=== PATIENT | female | born 1960 | race Caucasian/White ===

== ENCOUNTER 2021-02-24 14:45 | Inpatient (IN) ==
[2021-02-24] MEDS ORDERED: *HR* Enoxaparin 40 MG/0.4 ML SYRINGE SQ ONE (16:59)
[2021-02-24] MEDS ORDERED: Naloxone 0.4 MG/ML INJ IVP PRN (16:59)
[2021-02-24] MEDS ORDERED: Dextrose Gel 15 GM/37.5 ML TUBE PO PRN ×2 (17:56)
[2021-02-24] MEDS ORDERED: *HR* Dextrose 50 % in Water (Vial) 50 ML VIAL IVP PRN (17:56)
[2021-02-24] MEDS ORDERED: D5% in Water 1,000 ML IVC PRN (17:56)
[2021-02-24] MEDS ORDERED: Remdesivir 200 MG in 0.9 % Sodium Chloride 100 ML IVPB ONE (18:00)
[2021-02-24] MEDS: Ondansetron 4 MG/2 ML VIAL IVP PRN (22:29)
[2021-02-24] MEDS: Insulin LISPRO 300 UNITS/3 ML VIAL SUBQ SCH (22:30)
[2021-02-25 07:17] LABS: INR 1.3; Prothrombin Time 14.8 Seconds (9.4-12.1)
[2021-02-25 07:19] LABS: Alanine Aminotransferase 54 Units/L (7-52); Albumin 3.3 g/dL (3.5-5.7); Albumin/Globulin Ratio 0.8 (1.1-2.2); Alkaline Phosphatase 110 Units/L (34-104); Aspartate Amino Transferase 70 Units/L (13-39); BUN/Creatinine Ratio 41 (6-26); Bilirubin,Direct 0.1 mg/dL (0.0-0.2); Bilirubin,Indirect 0.3 mg/dL (0.0-1.0); Bilirubin,Total 0.4 mg/dL (0.3-1.0); Blood Urea Nitrogen 26 mg/dL (8-23); Carbon Dioxide 24 mEq/L (23-29); Chloride 105 mEq/L (98-107); Globulin 4.3 g/dL (2.4-3.5); Glucose 256 mg/dL (70-105); Magnesium 2.3 mg/dL (1.6-2.6); Osmolality,Calculated 296 (280-300); Potassium 4.5 mEq/L (3.5-5.1); Sodium 136 mEq/L (136-145); Total Protein 7.6 g/dL (6.4-8.9); eGFR For African Americans > 60 (> 60); eGFR For Non-African Americans > 60 (> 60)
[2021-02-25] MEDS: dexAMETHasone 4 MG TABLET PO SCH (08:20)
[2021-02-25] MEDS: Pantoprazole 40 MG VIAL IVP SCH (08:20)
[2021-02-25] MEDS: *HR* Enoxaparin 40 MG/0.4 ML SYRINGE SQ SCH (08:21)
[2021-02-25] MEDS: Insulin LISPRO 300 UNITS/3 ML VIAL SUBQ SCH ×3 (08:21→16:31)
[2021-02-25 09:43] LABS: C-Reactive Protein 70 mg/L (Less than 10)
[2021-02-25 10:47] LABS: Estimated Average Glucose 237 mg/dl; Hemoglobin A1C 9.9 %
[2021-02-25 12:49] LABS: Basophils % 0.3 %
[2021-02-25 12:51] LABS: Basophils # 0.1 K/mcL (0.0-0.2); Hematocrit 38.9 % (35.3-44.9); Hemoglobin 12.8 g/dL (11.5-15.4); Immature Granulocytes % 1.6 % (0-4); Immature Platelets 10.6 % (1.1-6.1); Lymphocytes # 1.3 K/mcL (0.6-4.6); Lymphocytes % 8.1 %; Mean Corpuscular HGB Conc 32.9 g/dL (31.6-35.5); Mean Corpuscular Hemoglobin 33.6 pg (28.0-33.3); Mean Corpuscular Volume 102.1 fL (83.0-100.0); Mean Platelet Volume 13.5 fL (9.4-12.4); Monocytes # 0.5 K/mcL (0.0-1.3); Monocytes % 3.3 %; Neutrophils # 13.7 K/mcL (1.6-8.9); Platelet Count 267 K/mcL (140-400); Red Blood Count 3.81 M/mcL (3.82-4.97); Segmented Neutrophils % 86.7 %; White Blood Count 15.8 K/mcL (4.3-11.1)
[2021-02-25] MEDS: Furosemide 20 MG TABLET PO SCH (13:57)
[2021-02-25] MEDS: Verapamil ER (24 HR) 240 MG TABLET.ER PO SCH (13:57)
[2021-02-25] MEDS: allopurinoL 100 MG TABLET PO SCH (13:58)
[2021-02-25] MEDS: Remdesivir 100 MG in 0.9 % Sodium Chloride 100 ML IVPB SCH (16:31)
[2021-02-25] MEDS: Acetaminophen 325 MG TABLET PO PRN (20:57)
[2021-02-25] MEDS ORDERED: Insulin DETEMIR 100 UNIT/ML X5UNITS SUBQ SCH (21:00)
[2021-02-26] MEDS: Ondansetron 4 MG/2 ML VIAL IVP PRN ×2 (04:48→20:44)
[2021-02-26 05:15] LABS: Basophils # 0.1 K/mcL (0.0-0.2); Basophils % 0.5 %; Hematocrit 40.3 % (35.3-44.9); Hemoglobin 13.4 g/dL (11.5-15.4); Immature Granulocytes % 3.8 % (0-4); Lymphocytes # 1.4 K/mcL (0.6-4.6); Lymphocytes % 12.3 %; Mean Corpuscular HGB Conc 33.3 g/dL (31.6-35.5); Mean Corpuscular Hemoglobin 33.3 pg (28.0-33.3); Mean Platelet Volume 12.7 fL (9.4-12.4); Monocytes # 0.5 K/mcL (0.0-1.3); Monocytes % 3.8 %; Neutrophils # 9.3 K/mcL (1.6-8.9); Nucleated Red Blood Cells 0.3 /100 WBC (0); Platelet Count 301 K/mcL (140-400); Red Blood Count 4.03 M/mcL (3.82-4.97); Red Cell Distribution Width 13.6 % (11.5-14.5); Segmented Neutrophils % 79.6 %; White Blood Count 11.7 K/mcL (4.3-11.1)
[2021-02-26 05:31] LABS: Albumin 3.4 g/dL (3.5-5.7); Albumin/Globulin Ratio 0.7 (1.1-2.2); Bilirubin,Direct 0.1 mg/dL (0.0-0.2); Bilirubin,Indirect 0.5 mg/dL (0.0-1.0); Bilirubin,Total 0.6 mg/dL (0.3-1.0); Globulin 4.7 g/dL (2.4-3.5); Total Protein 8.1 g/dL (6.4-8.9)
[2021-02-26 05:32] LABS: Alanine Aminotransferase 74 Units/L (7-52); Albumin 3.4 g/dL (3.5-5.7); Albumin/Globulin Ratio 0.7 (1.1-2.2); Alkaline Phosphatase 125 Units/L (34-104); Aspartate Amino Transferase 83 Units/L (13-39); BUN/Creatinine Ratio 38 (6-26); Bilirubin,Total 0.6 mg/dL (0.3-1.0); Blood Urea Nitrogen 25 mg/dL (8-23); Calcium 9.2 mg/dL (8.6-10.3); Carbon Dioxide 24 mEq/L (23-29); Chloride 103 mEq/L (98-107); Globulin 4.7 g/dL (2.4-3.5); Glucose 275 mg/dL (70-105); Magnesium 2.1 mg/dL (1.6-2.6); Osmolality,Calculated 296 (280-300); Potassium 4.6 mEq/L (3.5-5.1); Sodium 136 mEq/L (136-145); Total Protein 8.1 g/dL (6.4-8.9); eGFR For African Americans > 60 (> 60); eGFR For Non-African Americans > 60 (> 60)
[2021-02-26] MEDS: Insulin LISPRO 300 UNITS/3 ML VIAL SUBQ SCH ×3 (08:59→17:02)
[2021-02-26] MEDS: Verapamil ER (24 HR) 240 MG TABLET.ER PO SCH (09:00)
[2021-02-26] MEDS: Furosemide 20 MG TABLET PO SCH (09:01)
[2021-02-26] MEDS: dexAMETHasone 4 MG TABLET PO SCH (09:01)
[2021-02-26] MEDS: Aspirin Enteric Coated 81 MG Tablet PO SCH (09:01)
[2021-02-26] MEDS: lisinopriL 20 MG TABLET PO SCH (09:02)
[2021-02-26] MEDS: Pantoprazole 40 MG VIAL IVP SCH (09:02)
[2021-02-26] MEDS: allopurinoL 100 MG TABLET PO SCH (09:02)
[2021-02-26] MEDS: *HR* Enoxaparin 40 MG/0.4 ML SYRINGE SQ SCH (09:15)
[2021-02-26] MEDS: Remdesivir 100 MG in 0.9 % Sodium Chloride 100 ML IVPB SCH (16:55)
[2021-02-26] MEDS ORDERED: Insulin DETEMIR 100 UNIT/ML X5UNITS SUBQ SCH (21:00)
[2021-02-27 03:27] LABS: Basophils % 0.3 %; Hematocrit 38.1 % (35.3-44.9); Hemoglobin 12.9 g/dL (11.5-15.4); Immature Granulocytes % 3.7 % (0-4); Lymphocytes # 1.2 K/mcL (0.6-4.6); Lymphocytes % 10.4 %; Mean Corpuscular HGB Conc 33.9 g/dL (31.6-35.5); Mean Corpuscular Hemoglobin 33.5 pg (28.0-33.3); Mean Platelet Volume 12.1 fL (9.4-12.4); Monocytes % 2.9 %; Nucleated Red Blood Cells 0.6 /100 WBC (0); Platelet Count 266 K/mcL (140-400); Red Blood Count 3.85 M/mcL (3.82-4.97); Red Cell Distribution Width 13.5 % (11.5-14.5); Segmented Neutrophils % 82.7 %; White Blood Count 11.9 K/mcL (4.3-11.1)
[2021-02-27 03:36] LABS: Monocytes # 0.4 K/mcL (0.0-1.3); Neutrophils # 9.8 K/mcL (1.6-8.9)
[2021-02-27 03:46] LABS: Albumin 3.1 g/dL (3.5-5.7); Albumin/Globulin Ratio 0.6 (1.1-2.2); Bilirubin,Direct 0.2 mg/dL (0.0-0.2); Bilirubin,Indirect 0.4 mg/dL (0.0-1.0); Bilirubin,Total 0.6 mg/dL (0.3-1.0); Globulin 4.8 g/dL (2.4-3.5); Total Protein 7.9 g/dL (6.4-8.9)
[2021-02-27 03:48] LABS: Alanine Aminotransferase 75 Units/L (7-52); Albumin 3.1 g/dL (3.5-5.7); Albumin/Globulin Ratio 0.6 (1.1-2.2); Alkaline Phosphatase 135 Units/L (34-104); Aspartate Amino Transferase 67 Units/L (13-39); BUN/Creatinine Ratio 40 (6-26); Bilirubin,Total 0.6 mg/dL (0.3-1.0); Blood Urea Nitrogen 24 mg/dL (8-23); Calcium 9.2 mg/dL (8.6-10.3); Carbon Dioxide 24 mEq/L (23-29); Chloride 103 mEq/L (98-107); Globulin 4.8 g/dL (2.4-3.5); Glucose 245 mg/dL (70-105); Magnesium 1.9 mg/dL (1.6-2.6); Osmolality,Calculated 292 (280-300); Potassium 4.6 mEq/L (3.5-5.1); Sodium 135 mEq/L (136-145); Total Protein 7.9 g/dL (6.4-8.9); eGFR For African Americans > 60 (> 60); eGFR For Non-African Americans > 60 (> 60)
[2021-02-27] MEDS ORDERED: Isovue-370 500 ML BOTTLE IVP ONE (07:37)
[2021-02-27] MEDS: Pantoprazole 40 MG VIAL IVP SCH (08:26)
[2021-02-27] MEDS: *HR* Enoxaparin 40 MG/0.4 ML SYRINGE SQ SCH (08:27)
[2021-02-27] MEDS: Dexamethasone Sodium Phos/PF 10 MG/ML VIAL IVP SCH (08:27)
[2021-02-27] MEDS: lisinopriL 20 MG TABLET PO SCH (08:28)
[2021-02-27] MEDS: Verapamil ER (24 HR) 240 MG TABLET.ER PO SCH (08:28)
[2021-02-27] MEDS: Aspirin Enteric Coated 81 MG Tablet PO SCH (08:28)
[2021-02-27] MEDS: allopurinoL 100 MG TABLET PO SCH (08:28)
[2021-02-27] MEDS: Insulin LISPRO 300 UNITS/3 ML VIAL SUBQ SCH ×3 (08:29→16:47)
[2021-02-27] MEDS ORDERED: Furosemide 20 MG TABLET PO SCH (09:00)
[2021-02-27] MEDS ORDERED: Enoxaparin Weight Dosing SQ SCH (10:00)
[2021-02-27] MEDS ORDERED: *HR* Enoxaparin 120 MG/0.8 ML SYRINGE SQ SCH (10:15)
[2021-02-27] MEDS ORDERED: *HR* Enoxaparin 80 MG/0.8 ML SYRINGE SQ ONE (10:15)
[2021-02-27] MEDS: Remdesivir 100 MG in 0.9 % Sodium Chloride 100 ML IVPB SCH (16:48)
[2021-02-27] MEDS: *HR* Enoxaparin 120 MG/0.8 ML SYRINGE SQ SCH (19:39)
[2021-02-27] MEDS: Insulin DETEMIR 100 UNIT/ML X5UNITS SUBQ SCH (20:18)
[2021-02-28] MEDS: Melatonin 3 MG TABLET PO PRN (02:53)
[2021-02-28 03:22] LABS: Hematocrit 37.4 % (35.3-44.9); Hemoglobin 12.7 g/dL (11.5-15.4); Mean Corpuscular Hemoglobin 33.1 pg (28.0-33.3); Mean Corpuscular Volume 97.4 fL (83.0-100.0); Mean Platelet Volume 12.6 fL (9.4-12.4); Platelet Count 248 K/mcL (140-400); Red Blood Count 3.84 M/mcL (3.82-4.97); Red Cell Distribution Width 13.2 % (11.5-14.5); White Blood Count 12.8 K/mcL (4.3-11.1)
[2021-02-28 03:45] LABS: Alanine Aminotransferase 66 Units/L (7-52); Albumin/Globulin Ratio 0.6 (1.1-2.2); Alkaline Phosphatase 139 Units/L (34-104); Aspartate Amino Transferase 48 Units/L (13-39); BUN/Creatinine Ratio 41 (6-26); Bilirubin,Direct 0.2 mg/dL (0.0-0.2); Bilirubin,Indirect 0.5 mg/dL (0.0-1.0); Bilirubin,Total 0.7 mg/dL (0.3-1.0); Blood Urea Nitrogen 25 mg/dL (8-23); Calcium 9.2 mg/dL (8.6-10.3); Carbon Dioxide 22 mEq/L (23-29); Chloride 103 mEq/L (98-107); Globulin 4.7 g/dL (2.4-3.5); Glucose 275 mg/dL (70-105); Magnesium 1.9 mg/dL (1.6-2.6); Osmolality,Calculated 292 (280-300); Potassium 4.3 mEq/L (3.5-5.1); Sodium 134 mEq/L (136-145); Total Protein 7.7 g/dL (6.4-8.9); eGFR For African Americans > 60 (> 60); eGFR For Non-African Americans > 60 (> 60)
[2021-02-28] MEDS: lisinopriL 20 MG TABLET PO SCH (07:59)
[2021-02-28] MEDS: Aspirin Enteric Coated 81 MG Tablet PO SCH (07:59)
[2021-02-28] MEDS: Verapamil ER (24 HR) 240 MG TABLET.ER PO SCH (07:59)
[2021-02-28] MEDS: allopurinoL 100 MG TABLET PO SCH (07:59)
[2021-02-28] MEDS: Dexamethasone Sodium Phos/PF 10 MG/ML VIAL IVP SCH (07:59)
[2021-02-28] MEDS: Pantoprazole 40 MG VIAL IVP SCH (08:00)
[2021-02-28] MEDS: *HR* Enoxaparin 120 MG/0.8 ML SYRINGE SQ SCH ×2 (08:00→20:47)
[2021-02-28] MEDS: Insulin DETEMIR 100 UNIT/ML X5UNITS SUBQ SCH (08:07)
[2021-02-28] MEDS: Insulin LISPRO 300 UNITS/3 ML VIAL SUBQ SCH ×4 (08:09→16:35)
[2021-02-28] MEDS: Acetaminophen 325 MG TABLET PO PRN (12:15)
[2021-02-28] MEDS: hydrOXYzine pamoate 25 MG CAPSULE PO PRN (12:54)
[2021-02-28] MEDS: Remdesivir 100 MG in 0.9 % Sodium Chloride 100 ML IVPB SCH (16:33)
[2021-02-28] MEDS ORDERED: TOCILIZUMAB 810 MG in 0.9 % Sodium Chloride 95.5 ML IVPB ONE ×2 (17:30→18:30)
[2021-02-28] MEDS ORDERED: Ipratropium 1 PUFF INHALER IH PRN (19:45)
[2021-02-28] MEDS ORDERED: Insulin DETEMIR 100 UNIT/ML X5UNITS SUBQ SCH (21:00)
[2021-03-01 05:07] LABS: Alanine Aminotransferase 60 Units/L (7-52); Albumin 2.7 g/dL (3.5-5.7); Albumin 2.8 g/dL (3.5-5.7); Albumin/Globulin Ratio 0.6 (1.1-2.2); Alkaline Phosphatase 136 Units/L (34-104); Aspartate Amino Transferase 46 Units/L (13-39); BUN/Creatinine Ratio 49 (6-26); Bilirubin,Direct 0.1 mg/dL (0.0-0.2); Bilirubin,Indirect 0.5 mg/dL (0.0-1.0); Bilirubin,Total 0.6 mg/dL (0.3-1.0); Bilirubin,Total 0.7 mg/dL (0.3-1.0); Blood Urea Nitrogen 26 mg/dL (8-23); Carbon Dioxide 23 mEq/L (23-29); Chloride 103 mEq/L (98-107); Globulin 4.6 g/dL (2.4-3.5); Globulin 4.7 g/dL (2.4-3.5); Glucose 253 mg/dL (70-105); Magnesium 1.9 mg/dL (1.6-2.6); Osmolality,Calculated 291 (280-300); Potassium 5.6 mEq/L (3.5-5.1); Sodium 134 mEq/L (136-145); Total Protein 7.4 g/dL (6.4-8.9); eGFR For African Americans > 60 (> 60); eGFR For Non-African Americans > 60 (> 60)
[2021-03-01] MEDS ORDERED: Furosemide 40 MG/4 ML VIAL IVP ONE (08:00)
[2021-03-01] MEDS: Insulin LISPRO 300 UNITS/3 ML VIAL SUBQ SCH ×6 (09:41→17:40)
[2021-03-01] MEDS: *HR* Enoxaparin 120 MG/0.8 ML SYRINGE SQ SCH (09:42)
[2021-03-01] MEDS: Insulin DETEMIR 100 UNIT/ML X5UNITS SUBQ SCH ×2 (09:43→20:43)
[2021-03-01] MEDS: Dexamethasone Sodium Phos/PF 10 MG/ML VIAL IVP SCH (09:43)
[2021-03-01] MEDS: Aspirin Enteric Coated 81 MG Tablet PO SCH (09:44)
[2021-03-01] MEDS: allopurinoL 100 MG TABLET PO SCH (09:44)
[2021-03-01] MEDS: Cholecalciferol (D-3) 1,000 UNIT (25MCG) TABLET PO SCH (09:51)
[2021-03-01] MEDS: Verapamil ER (24 HR) 240 MG TABLET.ER PO SCH (09:51)
[2021-03-01] MEDS: Pantoprazole 40 MG VIAL IVP SCH (12:57)
[2021-03-01] MEDS: Melatonin 3 MG TABLET PO PRN (20:37)
[2021-03-01] MEDS: *HR* Rivaroxaban 15 MG TABLET PO SCH (20:37)
[2021-03-02] MEDS: Cholecalciferol (D-3) 1,000 UNIT (25MCG) TABLET PO SCH (08:25)
[2021-03-02] MEDS: Aspirin Enteric Coated 81 MG Tablet PO SCH (08:25)
[2021-03-02] MEDS: Insulin LISPRO 300 UNITS/3 ML VIAL SUBQ SCH ×6 (08:26→17:16)
[2021-03-02] MEDS: *HR* Rivaroxaban 15 MG TABLET PO SCH ×2 (08:26→20:52)
[2021-03-02] MEDS: Dexamethasone Sodium Phos/PF 10 MG/ML VIAL IVP SCH (08:26)
[2021-03-02] MEDS: allopurinoL 100 MG TABLET PO SCH (08:26)
[2021-03-02] MEDS: Verapamil ER (24 HR) 240 MG TABLET.ER PO SCH (08:26)
[2021-03-02] MEDS: Insulin DETEMIR 100 UNIT/ML X5UNITS SUBQ SCH ×2 (08:27→21:46)
[2021-03-02 13:02] LABS: BUN/Creatinine Ratio 50 (6-26); Blood Urea Nitrogen 31 mg/dL (8-23); Calcium 9.3 mg/dL (8.6-10.3); Carbon Dioxide 23 mEq/L (23-29); Chloride 102 mEq/L (98-107); Glucose 319 mg/dL (70-105); Osmolality,Calculated 295 (280-300); Potassium 5.2 mEq/L (3.5-5.1); Sodium 133 mEq/L (136-145); eGFR For African Americans > 60 (> 60); eGFR For Non-African Americans > 60 (> 60)
[2021-03-02] MEDS: Acetaminophen 325 MG TABLET PO PRN ×2 (13:50→20:53)
[2021-03-02] MEDS: Melatonin 3 MG TABLET PO PRN (20:53)
[2021-03-03] MEDS ORDERED: Saline Nasal Spray 44 ML BOTTLE NS PRN (04:02)
[2021-03-03] MEDS: Verapamil ER (24 HR) 240 MG TABLET.ER PO SCH (08:19)
[2021-03-03] MEDS: allopurinoL 100 MG TABLET PO SCH (08:20)
[2021-03-03] MEDS: Insulin DETEMIR 100 UNIT/ML X5UNITS SUBQ SCH ×2 (08:20→20:50)
[2021-03-03] MEDS: Cholecalciferol (D-3) 1,000 UNIT (25MCG) TABLET PO SCH (08:20)
[2021-03-03] MEDS: *HR* Rivaroxaban 15 MG TABLET PO SCH ×2 (08:20→20:50)
[2021-03-03] MEDS: Aspirin Enteric Coated 81 MG Tablet PO SCH (08:20)
[2021-03-03] MEDS: Insulin LISPRO 300 UNITS/3 ML VIAL SUBQ SCH ×6 (08:21→17:02)
[2021-03-03] MEDS: Dexamethasone Sodium Phos/PF 10 MG/ML VIAL IVP SCH (08:24)
[2021-03-03] MEDS: Ondansetron 4 MG/2 ML VIAL IVP PRN (09:53)
[2021-03-03] MEDS: Ketorolac 15 MG/ML VIAL IVP PRN ×2 (11:00→23:15)
[2021-03-03 13:03] LABS: BUN/Creatinine Ratio 58 (6-26); Blood Urea Nitrogen 35 mg/dL (8-23); Calcium 9.1 mg/dL (8.6-10.3); Carbon Dioxide 20 mEq/L (23-29); Chloride 101 mEq/L (98-107); Glucose 313 mg/dL (70-105); Osmolality,Calculated 290 (280-300); Potassium 4.5 mEq/L (3.5-5.1); Sodium 130 mEq/L (136-145); eGFR For African Americans > 60 (> 60); eGFR For Non-African Americans > 60 (> 60)
[2021-03-03] MEDS: Melatonin 3 MG TABLET PO PRN (20:51)
[2021-03-03] MEDS ORDERED: Bisacodyl 10 MG RECTAL SUPPOSITORY RC PRN (21:00)
[2021-03-04] MEDS: Insulin DETEMIR 100 UNIT/ML X5UNITS SUBQ SCH ×2 (08:20→21:58)
[2021-03-04] MEDS: *HR* Rivaroxaban 15 MG TABLET PO SCH ×2 (08:21→20:54)
[2021-03-04] MEDS: Aspirin Enteric Coated 81 MG Tablet PO SCH (08:21)
[2021-03-04] MEDS: dexAMETHasone 4 MG TABLET PO SCH (08:21)
[2021-03-04] MEDS: allopurinoL 100 MG TABLET PO SCH (08:22)
[2021-03-04] MEDS: Verapamil ER (24 HR) 240 MG TABLET.ER PO SCH (08:22)
[2021-03-04] MEDS: Insulin LISPRO 300 UNITS/3 ML VIAL SUBQ SCH ×6 (08:23→16:53)
[2021-03-04] MEDS: Cholecalciferol (D-3) 1,000 UNIT (25MCG) TABLET PO SCH (08:25)
[2021-03-04] MEDS ORDERED: Dexamethasone Sodium Phos/PF 10 MG/ML VIAL IVP SCH (09:00)
[2021-03-04 10:28] LABS: BUN/Creatinine Ratio 61 (6-26); Blood Urea Nitrogen 43 mg/dL (8-23); Calcium 8.9 mg/dL (8.6-10.3); Carbon Dioxide 20 mEq/L (23-29); Chloride 101 mEq/L (98-107); Glucose 245 mg/dL (70-105); Osmolality,Calculated 293 (280-300); Potassium 4.9 mEq/L (3.5-5.1); Sodium 132 mEq/L (136-145); eGFR For African Americans > 60 (> 60); eGFR For Non-African Americans > 60 (> 60)
[2021-03-04] MEDS: Acetaminophen 325 MG TABLET PO PRN (12:22)
[2021-03-04] MEDS: hydrOXYzine pamoate 25 MG CAPSULE PO PRN (20:55)
[2021-03-05] MEDS: Aspirin Enteric Coated 81 MG Tablet PO SCH (07:34)
[2021-03-05] MEDS: Cholecalciferol (D-3) 1,000 UNIT (25MCG) TABLET PO SCH (07:34)
[2021-03-05] MEDS: *HR* Rivaroxaban 15 MG TABLET PO SCH (07:34)
[2021-03-05] MEDS: dexAMETHasone 4 MG TABLET PO SCH (07:35)
[2021-03-05] MEDS: Insulin DETEMIR 100 UNIT/ML X5UNITS SUBQ SCH ×2 (07:35→22:43)
[2021-03-05] MEDS: Insulin LISPRO 300 UNITS/3 ML VIAL SUBQ SCH ×6 (07:35→16:13)
[2021-03-05] MEDS: allopurinoL 100 MG TABLET PO SCH (07:35)
[2021-03-05] MEDS ORDERED: *HR* Heparin 5,000 UNIT/ML VIAL IVP PRN ×4 (12:12→19:30)
[2021-03-05] MEDS ORDERED: Heparin 25,000UNIT/250ML 1/2NS 25,000 UNIT/250 ML IV.SOLN IVC SCH (12:15)
[2021-03-05 12:39] LABS: INR 2.5; Prothrombin Time 27.7 Seconds (9.4-12.1)
[2021-03-05 12:40] LABS: Activated Partial Thrombo Time 26.4 Seconds (26.0-36.0)
[2021-03-05 12:50] LABS: D-Dimer 21133 ng/mLFEU (0-500)
[2021-03-05 12:52] LABS: Heparin anti-factor XA UFH > 2.00 IU/mL (0.30-0.70)
[2021-03-05 14:12] LABS: Hematocrit 46.2 % (35.3-44.9); Hemoglobin 15.7 g/dL (11.5-15.4); Immature Platelets 20.6 % (1.1-6.1); Mean Corpuscular Hemoglobin 32.9 pg (28.0-33.3); Mean Corpuscular Volume 96.9 fL (83.0-100.0); Mean Platelet Volume 14.4 fL (9.4-12.4); Red Blood Count 4.77 M/mcL (3.82-4.97); Red Cell Distribution Width 13.2 % (11.5-14.5); White Blood Count 17.8 K/mcL (4.3-11.1)
[2021-03-05] MEDS: polyethylene glycoL 3350 17 GM POWD.PACK PO SCH (14:13)
[2021-03-05 14:40] LABS: BUN/Creatinine Ratio 41 (6-26); Blood Urea Nitrogen 28 mg/dL (8-23); Calcium 9.2 mg/dL (8.6-10.3); Carbon Dioxide 20 mEq/L (23-29); Chloride 97 mEq/L (98-107); Glucose 386 mg/dL (70-105); Osmolality,Calculated 291 (280-300); Potassium 5.1 mEq/L (3.5-5.1); Sodium 130 mEq/L (136-145); eGFR For African Americans > 60 (> 60); eGFR For Non-African Americans > 60 (> 60)
[2021-03-05] MEDS: hydrOXYzine pamoate 25 MG CAPSULE PO PRN (22:44)
[2021-03-06] MEDS: Heparin 25,000UNIT/250ML 1/2NS 25,000 UNIT/250 ML IV.SOLN IVC SCH ×2 (02:00→23:56)
[2021-03-06] MEDS: polyethylene glycoL 3350 17 GM POWD.PACK PO SCH (08:54)
[2021-03-06] MEDS: Insulin LISPRO 300 UNITS/3 ML VIAL SUBQ SCH ×6 (08:55→16:35)
[2021-03-06] MEDS: allopurinoL 100 MG TABLET PO SCH (08:56)
[2021-03-06] MEDS: dexAMETHasone 4 MG TABLET PO SCH (08:56)
[2021-03-06] MEDS: Cholecalciferol (D-3) 1,000 UNIT (25MCG) TABLET PO SCH (08:56)
[2021-03-06] MEDS: Aspirin Enteric Coated 81 MG Tablet PO SCH (08:57)
[2021-03-06] MEDS: Insulin DETEMIR 100 UNIT/ML X5UNITS SUBQ SCH ×2 (08:57→21:19)
[2021-03-06] MEDS: Furosemide 20 MG/2 ML VIAL IVP SCH ×2 (09:18→21:19)
[2021-03-06 11:01] LABS: Immature Granulocytes % 1.4 % (0-4); Mean Corpuscular HGB Conc 34.5 g/dL (31.6-35.5); Mean Corpuscular Hemoglobin 32.9 pg (28.0-33.3); Mean Platelet Volume 13.6 fL (9.4-12.4)
[2021-03-06 11:03] LABS: Basophils % 0.3 %; Eosinophils # 0.1 K/mcL (0.0-0.6); Eosinophils % 0.9 %; Hematocrit 47.6 % (35.3-44.9); Hemoglobin 16.4 g/dL (11.5-15.4); Immature Platelets 21.4 % (1.1-6.1); Lymphocytes % 6.6 %; Mean Corpuscular Volume 95.4 fL (83.0-100.0); Monocytes # 0.5 K/mcL (0.0-1.3); Monocytes % 3.1 %; Neutrophils # 12.8 K/mcL (1.6-8.9); Platelet Count 275 K/mcL (140-400); Red Blood Count 4.99 M/mcL (3.82-4.97); Segmented Neutrophils % 87.7 %; White Blood Count 14.6 K/mcL (4.3-11.1)
[2021-03-06 11:19] LABS: BUN/Creatinine Ratio 33 (6-26); Blood Urea Nitrogen 24 mg/dL (8-23); Calcium 9.2 mg/dL (8.6-10.3); Carbon Dioxide 25 mEq/L (23-29); Chloride 94 mEq/L (98-107); Glucose 361 mg/dL (70-105); Osmolality,Calculated 287 (280-300); Potassium 3.9 mEq/L (3.5-5.1); Sodium 129 mEq/L (136-145); eGFR For African Americans > 60 (> 60); eGFR For Non-African Americans > 60 (> 60)
[2021-03-06] MEDS: Preparation H Ointment 57 GM TUBE RC SCH ×2 (16:34→21:20)
[2021-03-06] MEDS: hydrOXYzine pamoate 25 MG CAPSULE PO PRN (21:18)
[2021-03-07 07:12] VITALS: TEMP 97.7
[2021-03-07] MEDS: Insulin LISPRO 300 UNITS/3 ML VIAL SUBQ SCH ×4 (09:02→11:49)
[2021-03-07] MEDS: *HR* LORazepam 0.5 MG TABLET PO SCH ×2 (09:05→09:06)
[2021-03-07] MEDS: Aspirin Enteric Coated 81 MG Tablet PO SCH (09:06)
[2021-03-07] MEDS: dexAMETHasone 4 MG TABLET PO SCH (09:07)
[2021-03-07] MEDS: allopurinoL 100 MG TABLET PO SCH (09:07)
[2021-03-07] MEDS: Cholecalciferol (D-3) 1,000 UNIT (25MCG) TABLET PO SCH (09:07)
[2021-03-07] MEDS: Furosemide 20 MG/2 ML VIAL IVP SCH (09:12)
[2021-03-07] MEDS: polyethylene glycoL 3350 17 GM POWD.PACK PO SCH (09:12)
[2021-03-07] MEDS: Insulin DETEMIR 100 UNIT/ML X5UNITS SUBQ SCH (09:25)
[2021-03-07] MEDS: Preparation H Ointment 57 GM TUBE RC SCH ×2 (11:08→13:05)
[2021-03-07 11:33] VITALS: BP 131/67; PULSE 88
[2021-03-07 11:44] VITALS: O2SAT 92
[2021-03-07] MEDS ORDERED: *HR* Rivaroxaban 15 MG TABLET PO SCH (12:30)
== END 2021-03-07 17:28 | disposition left against medical advice (07) | DRG 177 ==
LOC: 2NENU → SUATTDRO 16:34
PROVIDERS: ADMIT Hospitalist; ATTEND Internal Medicine